=== PATIENT | female | born 1965 | race Caucasian/White ===

== ENCOUNTER 2021-10-04 10:29 | Inpatient (IN) | payer SELFPAY ==
[2021-10-04 11:19] LABS: #Eosinphils 0.1 thou/uL (0.0-0.7); #Lymphocytes 1.8 thou/uL (1.20-3.40); #Monocytes 0.6 thou/uL (0.11-0.59); #Neutrophils 7.3 thou/uL (1.40-6.50); %Basophils 0.5 % (0.0-1.0); %Eosinophils 0.7 % (0.0-10.0); %Lymphocytes 18.3 % (21.0-51.0); %Monocytes 6.2 % (0.0-10.0); %Neutrophils 74.3 % (42.0-75.0); Hemoglobin 13.5 g/dL (12.0-16.0); Mean Corpuscular HGB CONC 31.8 g/dL (32.0-36.0); Mean Corpuscular Hemoglobin 29.6 pg (27.0-31.0); Mean Corpuscular Volume 93.1 fL (78.0-98.0); Mean Platelet Volume 7.3 fL (7.4-10.4); Platelet Count 352 thou/uL (130-400); RBC Distribution Width 11.8 % (11.5-14.5); Red Blood Cell (RBC) Count 4.54 mill/uL (4.20-5.40); White Blood Cell (WBC) Count 9.9 thou/uL (4.8-10.8)
[2021-10-04 11:42] LABS: Acetaminophen Less than 6.0 mcg/mL (10.0-30.0); Alcohol Less than 10 mg/dL (Less than 10); Salicylate Less than 8.0 mg/dL (15.0-30.0)
[2021-10-04 11:56] LABS: ALT (SGPT) 11 U/L (8-55); AST (SGOT) 17 U/L (5-34); Albumin 2.7 g/dL (3.5-5.0); Alkaline Phosphatase 103 U/L (40-110); Anion Gap 14 mmol/L (10-20); BUN (Urea Nitrogen) 21 mg/dL (9.8-20.1); Bilirubin, Total Less than 0.2 mg/dL (0.2-1.2); Calc. Creatinine Clearance 0 mL/min (70-130); Calcium 9.2 mg/dL (7.8-10.44); Carbon Dioxide 27 mmol/L (22-29); Chloride 92 mmol/L (98-107); Globulin 3.8 g/dL (2.4-3.5); Glucose 697 mg/dL (70-105); Protein, Total 6.5 g/dL (6.0-8.3); Sodium 128 mmol/L (136-145)
[2021-10-04 13:52] LABS: Amphetamine Detected (NotDetected); Barbiturates Screen Not Detected (NotDetected); Benzodiazepine Screen Not Detected (NotDetected); Cocaine Metabolite Screen Not Detected (NotDetected); Methadone Not Detected (NotDetected); Methamphetamine Not Detected (NotDetected); Opiate Screen Not Detected (NotDetected); Oxycodone Screen Not Detected (NotDetected); Phencyclidine (PCP) Not Detected (NotDetected); THC/Cannabinoid Screen Not Detected (NotDetected); Tricyclic Screen Not Detected (NotDetected)
[2021-10-04 13:56] LABS: Bacteria/HPF None Seen HPF (None Seen); Bilirubin Negative (Negative); Blood, Urine 1+ (Negative); Clarity Clear (Clear); Glucose, Urine (Dipstick) Greater than 1000 mg/dL (Negative); Ketone, Urine Negative (Negative); Leukocyte 75 Leu/uL (Negative); Nitrite Negative (Negative); Protein, Urine (Dipstick) 200 mg/dL (Neg-Trace); Specific Gravity, Urine 1.028 (1.002-1.036); Urobilinogen Normal mg/dL (Less than 2)
[2021-10-04] MEDS ORDERED: Dextrose 5% in Water 1,000 ML IV PRN (15:43)
[2021-10-04] MEDS ORDERED: Dextrose 50% Abboject 50 ML SYRINGE SLOW IVP PRN (15:43)
[2021-10-04 16:08] LABS: Hemoglobin A1c Greater than 14.0 % (4.0-6.0)
[2021-10-04 18:13] VITALS: BMI 32.5
[2021-10-04] MEDS: cefTRIAXone\\ROCEPHIN 1 GM in Sodium Chloride 0.9% 100 ML IVPB SCH (18:35)
[2021-10-04] MEDS: Sodium Chloride 0.9% 1,000 ML IV SCH ×2 (18:35→21:40)
[2021-10-04] MEDS: Famotidine 20 MG TAB PO SCH (21:12)
[2021-10-04] MEDS: Insulin Regular 300 UNITS/3 ML VIAL SC PRN (21:29)
[2021-10-04] MEDS: Lantus 1000 UNITS/10 ML VIAL SC SCH (21:29)
[2021-10-05 00:09] LABS: SARS-CoV-2 PCR by NAA DETECTED (NotDetected)
[2021-10-05] MEDS: Acetaminophen 325 MG TAB PO PRN ×2 (00:46→20:31)
[2021-10-05] MEDS: hydrOXYzine 25 MG TAB PO PRN ×2 (00:47→23:32)
[2021-10-05] MEDS: HYDROcodone/Acetaminophen 5/325 mg Tablet PO PRN (05:18)
[2021-10-05 05:52] LABS: Eosinophils 2 % (0-10); Lymphocytes 39 % (21-51); MDiff Complete? YES; Mean Corpuscular HGB CONC 33.1 g/dL (32.0-36.0); Mean Corpuscular Hemoglobin 30.8 pg (27.0-31.0); Mean Corpuscular Volume 93.2 fL (78.0-98.0); Mean Platelet Volume 8.3 fL (7.4-10.4); Monocytes 4 % (0-10); Neutrophil 53 % (42-75); Platelet Count 293 thou/uL (130-400); Platelet Morphology Comment Appears Adequate; RBC Distribution Width 11.9 % (11.5-14.5); Reactive Lymphocytes 2 % (0-10); Red Blood Cell (RBC) Count 4.53 mill/uL (4.20-5.40); White Blood Cell (WBC) Count 10.4 thou/uL (4.8-10.8)
[2021-10-05 06:03] LABS: ALT (SGPT) 11 U/L (8-55); AST (SGOT) 21 U/L (5-34); Albumin 2.8 g/dL (3.5-5.0); Alkaline Phosphatase 89 U/L (40-110); Anion Gap 15 mmol/L (10-20); BUN (Urea Nitrogen) 18 mg/dL (9.8-20.1); Bilirubin, Total Less than 0.2 mg/dL (0.2-1.2); Calc. Creatinine Clearance 85 mL/min (70-130); Calcium 8.6 mg/dL (7.8-10.44); Carbon Dioxide 19 mmol/L (22-29); Chloride 100 mmol/L (98-107); Globulin 4.4 g/dL (2.4-3.5); Glucose 292 mg/dL (70-105); Potassium 4.9 mmol/L (3.5-5.1); Protein, Total 7.2 g/dL (6.0-8.3); Sodium 129 mmol/L (136-145)
[2021-10-05] MEDS: Insulin Regular 300 UNITS/3 ML VIAL SC PRN ×3 (06:21→20:44)
[2021-10-05] MEDS: metFORMIN 500 MG TAB PO SCH ×2 (09:35→16:36)
[2021-10-05] MEDS: Lisinopril 10 MG TAB PO SCH (09:35)
[2021-10-05] MEDS: Famotidine 20 MG TAB PO SCH ×2 (09:36→20:32)
[2021-10-05] MEDS: Lantus 1000 UNITS/10 ML VIAL SC SCH ×2 (09:36→20:45)
[2021-10-05] MEDS: Sodium Chloride 0.9% 1,000 ML IV SCH ×2 (09:40→23:33)
[2021-10-05] MEDS: cefTRIAXone\\ROCEPHIN 1 GM in Sodium Chloride 0.9% 100 ML IVPB SCH (18:20)
[2021-10-05] MEDS: Atorvastatin Calcium 10 MG TAB PO SCH (20:32)
[2021-10-06] MEDS ORDERED: FLU VACC QS2021-22(6MOS UP)/PF 60 MCG/0.5 ML SYRINGE IM ONE (09:00)
[2021-10-06] MEDS: metFORMIN 500 MG TAB PO SCH ×2 (09:06→16:13)
[2021-10-06] MEDS: HYDROcodone/Acetaminophen 5/325 mg Tablet PO PRN ×2 (09:06→20:07)
[2021-10-06] MEDS: Lisinopril 10 MG TAB PO SCH (09:08)
[2021-10-06] MEDS: Famotidine 20 MG TAB PO SCH ×2 (09:08→20:08)
[2021-10-06] MEDS: Lantus 1000 UNITS/10 ML VIAL SC SCH ×2 (09:09→20:23)
[2021-10-06] MEDS: Sodium Chloride 0.9% 1,000 ML IV SCH ×2 (09:12→12:53)
[2021-10-06] MEDS ORDERED: CASIRIVIMAB/IMDEVIMAB 10 ML in Sodium Chloride 0.9% 250 ML 250 ML IV SCH (12:00)
[2021-10-06] MEDS: Insulin Regular 300 UNITS/3 ML VIAL SC PRN ×3 (12:53→20:09)
[2021-10-06 16:21] LABS: HIV (1/2) Antibody/Antigen Non-Reactive (NonReactive); HIV 1/2 INDEX 0.13 S/CO (<1.00); Hep C IgG Ab Non-Reactive (NonReactive); Hep C Index 0.09 S/CO (0-0.79)
[2021-10-06] MEDS: hydrOXYzine 25 MG TAB PO PRN (20:07)
[2021-10-06] MEDS: Cipro 250 MG TAB PO SCH (20:08)
[2021-10-06] MEDS: Atorvastatin Calcium 10 MG TAB PO SCH (20:08)
[2021-10-06 20:23] LABS: SARS-CoV-2 IgG Spike Ab Interp Reactive (NonReactive); SARS-CoV-2 IgG Spike Conc/Indx 23017.6 AU/mL (0.00-50.0)
[2021-10-07] MEDS: Cipro 250 MG TAB PO SCH (06:53)
[2021-10-07] MEDS: Lisinopril 10 MG TAB PO SCH (07:41)
[2021-10-07] MEDS: Famotidine 20 MG TAB PO SCH (07:41)
[2021-10-07] MEDS: Lantus 1000 UNITS/10 ML VIAL SC SCH (08:06)
[2021-10-07] MEDS: metFORMIN 500 MG TAB PO SCH (08:07)
[2021-10-07 11:59] VITALS: BP 146/90; TEMP 98.1
[2021-10-07] MEDS: Insulin Regular 300 UNITS/3 ML VIAL SC PRN (12:15)
[2021-10-07] MEDS: HYDROcodone/Acetaminophen 5/325 mg Tablet PO PRN (12:45)
== END 2021-10-07 15:24 | disposition home or self-care (01) | DRG 91 ==
LOC: ERS 10:29 → 2NO 13:51 → OBSVTOIN 18:05 → 2SW 10-05 02:38 → T4-B 10-05 22:41
PROVIDERS: ADMIT Family Medicine; ATTEND Internal Medicine
PROC: XW033G6 Introduction of REGN-COV2 Monoclonal Antibody into Peripheral Vein, Percutaneous Approach, New Technology Group 6 (ICD-10-PCS; principal; 2021-10-06)
DX: G92.8 Other toxic encephalopathy (principal); U07.1 COVID-19; N39.0 Urinary tract infection, site not specified; E87.1 Hypo-osmolality and hyponatremia; F29 Unspecified psychosis not due to a substance or known physiological condition; F17.210 Nicotine dependence, cigarettes, uncomplicated; F12.10 Cannabis abuse, uncomplicated; F15.10 Other stimulant abuse, uncomplicated; E11.65 Type 2 diabetes mellitus with hyperglycemia; I10 Essential (primary) hypertension; Z98.51 Tubal ligation status; Z79.84 Long term (current) use of oral hypoglycemic drugs; Z88.1 Allergy status to other antibiotic agents; Z88.8 Allergy status to other drugs, medicaments and biological substances; Z79.4 Long term (current) use of insulin; Z79.899 Other long term (current) drug therapy
CPT/HCPCS: 36415; 36416; 70450; 71045; 71275; 80053; 80306; 80307; 81003; 81015; 82728; 83036; 84439; 84443; 85025; 86140; 86769; 86803; 87086; 87389; 93005; G0378; J0696; J1815; J3490; J7050; U0003; U0005